=== PATIENT | female | born 1975 | race African-American/Black ===

== ENCOUNTER 2016-12-16 12:33 | Emergency (ER) | payer OTHER ==
--- NOTE | ~2016-12-16 | CR72 ---
[facility] A Service of [facility] & [facility] RADIOLOGY TEXT RESULTS PATIENT: RAFAEL GARCÍA LOCATION: [facility] : 77 UNIT #: [id number] AGE: [address]: Dirk Flowers MD SEX: F ORDER DR: [id number] [facility] [address] [place], [place] [address] [id number] E MR#: [id number] Acc #: [id number] NAME: RAFAEL GARCÍA : 1975 SEX: F STUDY DATE/TIME: 12/16/2016 1316 UNIT: [facility] ROOM: STUDY DESCRIPTION: CR Chest Single View Portable Attending Physician: Dirk Flowers M.D. Ordering Physician: Dirk Flowers M.D. Primary Care Physician: Barrera Kerns M.D. MEDICAL IMAGING REPORT This report is preliminary unless electronic signature is present EXAM Chest portable 12/16/2016 1316 hours HISTORY 41-year-old woman with 2-day history of cough and shortness of air. History of asthma, using inhaler COMPARISON 09/06/2013 FINDINGS Portable upright chest demonstrates stable elevation of the right hemidiaphragm. The cardiac, mediastinal and hilar contours appear normal. There is mild perihilar vascular crowding without edema, pneumonia or effusion. IMPRESSION No appreciable change from 09/06/2013. There is chronic elevation of the right hemidiaphragm. There is mild perihilar vascular crowding. No evidence of hyperinflation, pneumonia, edema or effusion. Dictated by... Berta Mcgraw M.D. THIS IS AN ELECTRONICALLY VERIFIED REPORT Berta Mcgraw M.D. at 12/17/2016 9:26 AM Warner TD: 12/16/2016 17:25 JOB #: [id number] MEDICAL IMAGING REPORT Page 1 of 1 COPY
--- NOTE | ~2016-12-16 | EKG ---
PATIENT: RAFAEL GARCÍA UNIT #: [id number] Ventricular Rate: 76 BPM Atrial Rate: 76 BPM P-R Interval: 156 ms QRS Duration: 86 ms Q-T Interval: 384 ms QTC Calculation(Bezet): 432 ms P Logan: 37 degrees Calculated R Logan: 27 degrees Calculated T Logan: 41 degrees Diagnosis Line: Normal sinus rhythm Diagnosis Line: Normal ECG Diagnosis Line: When compared with ECG of 20-JUN-2010 18:29, Diagnosis Line: No significant change was found Diagnosis Line: Confirmed by AHMET HOLBROOK MD ([id number]) on Diagnosis Line: 12/16/2016 2:05:28 PM INTERPRETING MD: SHERON SRIVASTAVA
[~2016-12-16 12:33] MED LIST: ADVAIR INH; ALBUTEROL17 G1 IH; BENTYL10 MG PO; BENTYL20 MG PO; DARVOCET-N 1001 TAB PO; DELSYM30 MG/5 ML PO; FLEXERIL PO; HCTZ PO; LASIX PO; LEVAQUIN750 MG PO; LORTAB 5/500 TA1 TA1 PO; MEDROL4 MG/DOSE- PO; NORCO 5/325 TAB1 TAB PO; NORVASC PO; ORUDIS75 M1 DOB; PERCOCET 5-3251 TAB PO; PHENERGAN DM1 ML PO; PHENERGAN PO; PHENERGAN VC W120 M1 PO; PHENERGAN25 MG PO; PRILOSEC20 MG PO; WALGREENS PHARMACY; ZITHROMAX PO; ZITHROMAX1 G/PKT PO; [UNRECOGNIZED DRUG - REMARK]
[2016-12-16 13:31] LABS: POC - CKMB <1.0 ng/mL (0.0-7.9); POC - TROPONIN <0.05 ng/mL (<=0.05)
[2016-12-16 13:36] LABS: BASOPHIL# 0.1 X10e3 (0-0.3); BASOPHIL% 1.1 % (0-2.5); EOSINOPHIL% 0.7 % (0.0-7.0); HEMATOCRIT 43.8 % (35.0-45.0); HEMOGLOBIN 14.6 gm/dL (12.0-16.0); LYMPHOCYTE# 2.6 X10e3 (1.0-3.5); LYMPHOCYTE% 38.7 % (17.0-45.0); MEAN CELL VOLUME 95.4 FL (83-96); MEAN CORPUSCULAR HEMOGLOBIN 31.9 PG (28-34); MEAN CORPUSCULAR HGB CONC 33.4 g/dL (30-36); MEAN PLATELET VOLUME 9.2 FL (6.5-11.5); MONOCYTE# 0.4 X10e3 (0-1.0); MONOCYTE% 6.4 % (3.0-12.0); NEUTROPHIL# 3.6 X10e3 (1.5-7.1); NEUTROPHIL% 53.1 % (40-75); PLATELET COUNT 211 X10e3 (140-420); RED BLOOD COUNT 4.59 X10e (3.90-5.30); WHITE BLOOD COUNT 6.8 X10e3 (4.0-10.5)
[2016-12-16 13:38] LABS: DIFF IND NO
[2016-12-16 13:52] LABS: INFLUENZA A NEG (NEG); INFLUENZA B NEG (NEG)
[2016-12-16 14:06] LABS: ALBUMIN SERUM 4.3 g/dL (3.5-5.0); BILIRUBIN, DIRECT 0.1 mg/dL (0.0-0.2); BILIRUBIN,INDIRECT 0.7 mg/dL (0.0-0.9); BILIRUBIN,TOTAL 0.8 mg/dL (0.2-2.0); CREATININE SERUM 0.5 mg/dL (0.6-1.4); GLOM FILT RATE Estimated 140.3 mL/min (>60); POTASSIUM 3.4 mmol/L (3.5-5.1); PROTEIN TOTAL SERUM 7.8 g/dL (6.0-8.3)
== END 2016-12-16 15:47 | disposition home or self-care (01) ==
LOC: CED 12:33
PROVIDERS: Emergency Medicine
DX: J40 Bronchitis, not specified as acute or chronic (principal); Z88.0 Allergy status to penicillin
CPT/HCPCS: 36415; 71010; 80048; 80076; 82550; 82553; 83880; 84484; 84703; 85025; 85379; 87651; 87804; 93005; 94640; 99283